=== PATIENT | male | born 1955 | race Hispanic/Latino ===

== ENCOUNTER → 2024-02-06 | Outpatient (CLI) | payer OTHER | END | disposition home or self-care (01) | LOC: RAH 12:38 | PROVIDERS: ATTEND Nurse Practitioner Family | DX: Z13.6 Encounter for screening for cardiovascular disorders (principal) | CPT/HCPCS: 75571 ==

== ENCOUNTER → 2024-09-02 | Outpatient (CLI) | payer OTHER | END | disposition home or self-care (01) | LOC: SHCH 08:12 | PROVIDERS: ATTEND Internal Medicine Cardiovascular Disease | DX: I08.0 Rheumatic disorders of both mitral and aortic valves (principal); I11.9 Hypertensive heart disease without heart failure; I35.0 Nonrheumatic aortic (valve) stenosis; R01.1 Cardiac murmur, unspecified | CPT/HCPCS: 93306 ==

== ENCOUNTER 2024-12-14 06:45 | Day surgery (SDC) | payer OTHER ==
[2024-12-11 09:27] LABS: IMMATURE GRANULOCYTE ABSOLUTE 0.03 K/uL (0-1); NUCLEATED RED BLOOD CELLS 0.0 % (0.0-0.19); PLATELET COUNT (AUTO) 269 K/uL (130-400); RED BLOOD CELL COUNT(AUTO) 4.71 MIL/uL (4.50-6.20); RED CELL DISTRIBUTION WIDTH 13.2 % (11.0-15.5); WHITE BLOOD COUNT (AUTO) 6.7 K/uL (4.8-10.8)
[2024-12-11 09:34] LABS: INR 0.99 (0.85-1.15)
[2024-12-11 09:35] LABS: CREATININE 0.8 mg/dL (0.5-1.3); GLOMERULAR FILTR. RATE CALC 96.0 mL/min (>90); GLUCOSE,RANDOM 149.0 mg/dL (70-105); SODIUM SERUM 141.0 mmol/L (136-145); UREA NITROGEN, BLOOD 19.0 mg/dL (7-18)
[2024-12-11 10:09] VITALS: BP 158/79; PULSE 79; RESP 18; TEMP 98.1
--- NOTE | 2024-12-11 10:47 | HMCIMG ---
EXAM: CR Chest, 1 View. CLINICAL HISTORY: PRE OP COMPARISON: None provided. FINDINGS: LUNGS: There is no mass, infiltrate, or acute pulmonary abnormality. PLEURAL SPACES: No pleural effusion or pneumothorax. MEDIASTINUM: The cardiomediastinal silhouette is within normal limits. Suspected small hiatal hernia. BONES: No aggressive appearing osseous lesion seen. IMPRESSION: 1. No acute cardiopulmonary findings. 2. Suspected small hiatal hernia. /[place]
--- NOTE | 2024-12-11 21:28 | EKG ---
[facility] Test Date: 2024-12-11 Test Time: 09:13:59 Pat Name: CARLA ANISHA Department: [facility] Room: Gender: M [employer]: [id number] : 1955 Requested By: KELLY CARROLL Order Number: [id number] Reading MD: Cruz Pereira Measurements Intervals [place] Rate: 67 P: 61 FL: 158 QRS: -32 QRSD: 101 T: -7 QT: 398 QTc: 420 Interpretive Statements Sinus rhythm Left axis deviation No previous ECG available for comparison Electronically Signed On 12-12-2024 19:48:16 CDT by Cruz Pereira Please click the below link to view image of tracing.
[~2024-12-14] VITALS: Ht 170.2 cm; Wt 76.7 kg
[2024-12-14] VITALS (11 sets, daily range): BP systolic 135–158; BP diastolic 77–90; PULSE 56–86; RESP 13–15; TEMP 97.6–97.8
[~2024-12-14 06:45] MED LIST: ALPR0.5T8 PO; AMLO-257 PO; ASCO500C18 PO; ASPI-1197 PO; ATOR10 PO; CHOL100040 PO; CYAN-35 PO; FISH1CAP63 PO; METF-444 PO; MULT-1203 PO; PRAS25CA10 PO; SAW450CA7 PO; SILD25TA PO; TAMS-55 PO
[2024-12-14] MEDS ORDERED: LIDOCAINE HCL 400MG/20ML VIAL ONE (09:41)
[2024-12-14] MEDS ORDERED: HEParin-NS 1,000 UNIT/500 ML 1,000 ML IV ONE (09:42)
[2024-12-14] MEDS ORDERED: IOHEXOL 350 MG/ML 100ML INFUS..BTL IV ONE (09:42)
[2024-12-14] MEDS ORDERED: NITROGLYCERIN 50MG VIAL ONE (09:43)
[2024-12-14] MEDS ORDERED: MIDAZOLAM HCL 1 MG/ML 2ML VIAL ONE ×2 (09:59→10:33)
[2024-12-14] MEDS ORDERED: BIVALIRUDIN 250 MG/VIAL IV ONE (10:00)
--- NOTE | 2024-12-14 11:17 | PRN ---
Left Heart Cath-Deric PROCEDURE: 1. Right common femoral arterial sheath placement. 2. Selective coronary angiogram. 3. Right common femoral brain sheath placement 4. Right heart catheterization with O2 saturations and cardiac output INDICATIONS: Severe asymptomatic aortic stenosis DESCRIPTION OF PROCEDURE: The patient was brought to the catheterization suite and prepped and draped in sterile fashion. An IV was started, if not already in place and both groins were exposed for arterial access. 1% lidocaine was used for local anesthesia and then a micropuncture kit was used to gain access and once free-flowing blood was seen, modified Seldinger technique was utilized to place a 6 Norwegian sheath into the right common femoral artery. Same technique was utilized to place a seven Norwegian sheath in the right common femoral vein. Next, preformed JL4 and JR4 Catheters were then used to selectively engage the [place] coronary vessels and multiple hand contrast injections were performed in different views to define the coronary anatomy. Next a seven Norwegian balloon tipped Lawrence-Jerry catheter was then used to get pr essures and saturations in the right atrium right ventricle pulmonary artery and pulmonary capillary wedge positions. I then tried to cross the aortic valve with a pigtail catheter but was unsuccessful. Cardiac outputs were obtained. An end of case sheath shot was done and a Perclose device was used for closure of arteriotomy site and a Vascade closure system was used for closure of venous access site. No complications occurred. FINDINGS: The left main artery bifurcates into the LAD and left circumflex artery and is free of any significant stenosis. Left anterior descending artery and its diagonal branch system are free of any significant stenosis. There are mild luminal irregularities and calcification noted but without evidence of flow obstructing lesions. The left circumflex artery is calcified and has a 20-30% concentric stenosis in its mid section. Obtuse marginal branch system is free of any significant disease. The right coronary artery is calcified large and a dominant system giving rise to the PDA and RPL. There was no stenosis present in the right coronary artery or its branch vessels. O2 saturations did not reveal any evidence of a step-up or step-down. Pressure waveforms were noted to be normal. Cardiac output by both thermodilution and Lola was greater than 5 L/min with normal cardiac indices noted as well. RECOMMENDATIONS: Continue home medications No heavy lifting 5 lb or greater for three days No driving 24 hours Follow up with Dr. Leos in 3-4 weeks with plans on discussing outpatient cardiothoracic surgical evaluation. KELLY LEOS MD Dec 14, 2024 11:17
[2024-12-14] MEDS ORDERED: DEXTROSE 50%-WATER 50 ML DISP.SYRIN IV PRN (11:30)
[2024-12-14] MEDS ORDERED: 0.9%NACL 1000ML 1,000 ML IV SCH (11:30)
[2024-12-14] MEDS ORDERED: GLUCAGON 1MG KIT 1 MG ML IM PRN (11:30)
--- NOTE | 2024-12-14 16:50 | NUR ---
both pt and given verbal and written discharge instructions. IV removed site asymptomatic. Pt taken out via wheelchair driving
== END 2024-12-14 17:00 | disposition home or self-care (01) ==
LOC: DAH 06:45
PROVIDERS: ATTEND Internal Medicine Cardiovascular Disease
DX: I35.0 Nonrheumatic aortic (valve) stenosis (principal); I25.10 Atherosclerotic heart disease of native coronary artery without angina pectoris; I25.84 Coronary atherosclerosis due to calcified coronary lesion; I10 Essential (primary) hypertension; E11.9 Type 2 diabetes mellitus without complications; E78.5 Hyperlipidemia, unspecified; I35.9 Nonrheumatic aortic valve disorder, unspecified; I87.2 Venous insufficiency (chronic) (peripheral); R93.1 Abnormal findings on diagnostic imaging of heart and coronary circulation; F41.9 Anxiety disorder, unspecified; Z79.01 Long term (current) use of anticoagulants; Z79.82 Long term (current) use of aspirin; Z79.899 Other long term (current) drug therapy
CPT/HCPCS: 80048; 85025; 85610; 85730; 36415; 71045; 93005; 93456; 82948; 99156; 99157 ×2; C1894 ×3; C1769; C1760 ×2; J3010; J3490 ×2; J1644 ×2; J2250 ×2; Q9967; A4215; A4222; A4221; A4663; A4216; A4606; Q9965; A4223 ×3; 96360; 96361; J0583